=== PATIENT | female | born 1955 | race Caucasian/White ===

== ENCOUNTER → 2016-07-11 | Outpatient (REF) | payer BC | LOC: M LAB REF 16:40 | PROVIDERS: ATTEND Surgery | DX: L72.0 Epidermal cyst (principal) ==

== ENCOUNTER → 2016-12-04 | Outpatient (REF) | payer BC | LOC: M LAB REF 12:52 | PROVIDERS: ATTEND Internal Medicine | DX: Z11.59 Encounter for screening for other viral diseases (principal) ==

== ENCOUNTER → 2017-02-06 | Outpatient (REF) | payer BC ==
[2017-02-06 11:54] LABS: ALBUMIN 3.6 GM/DL (3.2-5.2); ALKALINE PHOSPHATASE 90 U/L (45-117); ALT/SGPT 19 U/L (12-78); AST/SGOT 18 U/L (7-37); BILIRUBIN,DIRECT < 0.1 MG/DL (0.0-0.2); BILIRUBIN,TOTAL 0.4 MG/DL (0.2-1.0); TOTAL PROTEIN 6.6 GM/DL (6.4-8.2)
[2017-02-06 11:57] LABS: HEPATITIS B SURFACE ANTIBODY NEGATIVE (POSITIVE)
[2017-02-08 14:18] LABS: HBsAG CONFIRM SCRN Confirm. indicated (Negative); HBsAG NEUTRALIZATION Positive (.)
== END ==
LOC: M LABDRAW1 11:11
DX: B18.1 Chronic viral hepatitis B without delta-agent (principal); D18.03 Hemangioma of intra-abdominal structures
CPT/HCPCS: 80076

== ENCOUNTER → 2017-05-11 | Outpatient (CLI) | payer OTHER, BC ==
[2017-05-11 12:18] LABS: INFLUENZA A AMPLIFICATION NEGATIVE (NEGATIVE); INFLUENZA B AMPLIFICATION NEGATIVE (NEGATIVE)
== END ==
LOC: M LAB 10:45
DX: Z11.59 Encounter for screening for other viral diseases (principal)
CPT/HCPCS: 87502

== ENCOUNTER → 2018-02-26 | Outpatient (REF) | payer OTHER | LOC: M SFHCLERA 10:59 | PROVIDERS: ATTEND Nurse Practitioner Family | DX: R53.81 Other malaise (principal) ==

== ENCOUNTER → 2018-05-26 | Outpatient (REF) | payer OTHER | LOC: M LAB REF 16:17 | PROVIDERS: ATTEND Internal Medicine | DX: R31.9 Hematuria, unspecified (principal) ==

== ENCOUNTER → 2018-06-02 | Outpatient (REF) | payer OTHER | LOC: M LAB REF 12:24 | PROVIDERS: ATTEND Internal Medicine | DX: R31.9 Hematuria, unspecified (principal) ==

== ENCOUNTER → 2018-10-04 | Outpatient (REF) | payer OTHER | LOC: M SFHCLERA 09:22 | PROVIDERS: ATTEND Physician Assistant | DX: R30.0 Dysuria (principal) ==

== ENCOUNTER → 2019-06-24 | Outpatient (REF) | payer OTHER ==
[2019-06-24 18:06] LABS: APPEARANCE, URINE CLEAR (CLEAR); BACTERIA, URINE AUTO NEGATIVE (NEGATIVE); BILIRUBIN, URINE AUTO NEGATIVE (NEGATIVE); BLOOD, URINE BLOOD 2+ (NEGATIVE); COLOR, URINE YELLOW (YELLOW); GLUCOSE, URINE (UA) AUTO NEGATIVE (NEGATIVE); KETONE, URINE AUTO NEGATIVE (NEGATIVE); LEUKOCYTE ESTERASE, URINE AUTO NEGATIVE (NEGATIVE); NITRITE, URINE AUTO NEGATIVE (NEGATIVE); PROTEIN, URINE AUTO NEGATIVE (NEGATIVE); RBC, URINE AUTO 6 /HPF (0-3); SPECIFIC GRAVITY URINE AUTO 1.012 (1.002-1.035); SQUAMOUS EPITHELIAL CELL UR AU 0 /HPF (0-6); UROBILINOGEN, URINE AUTO 0.2 mg/dL (0.0-2.0); WBC, URINE AUTO 0 /HPF (0-3)
== END ==
LOC: M LAB REF 16:21
PROVIDERS: ATTEND Obstetrics & Gynecology
DX: N39.0 Urinary tract infection, site not specified (principal)

== ENCOUNTER → 2020-06-23 | Outpatient (CLI) | payer OTHER ==
--- NOTE | 2020-06-23 13:56 | REPMRS ---
Patient History The patient states she had a clinical breast exam on 04-04-2020. Patient is postmenopausal. No known family history of cancer. No Hormone Replacement Therapy Patient states no breast complaints today. Patient has signed MRS History Sheet. Digital Woman Screen Mammo: June 23, 2020 - Exam #: [id number] Bilateral CC and MLO view(s) were taken. Technologist: Debbie Burnett, Repairer General Prior study comparison: September 10, 2013, right breast digital mammo diagnostic unilateral, performed at [facility]. September 08, 2013, bilateral bilat screen digital mammo, performed at [facility] ([facility]). FINDINGS: There are scattered fibroglandular densities. Screening. Digital screening (2D) mammography was performed bilaterally in the CC and MLO projections. Additionally, breast tomosynthesis (3D mammography) was performed bilaterally in the CC and MLO projections. Todays exam was compared to the prior exams. By history, the patient has no complaints of a palpable breast abnormality or other significant breast complaints. The breasts are unchanged in size and shape. There are no aleksandar-soft tissue densities or spiculated masses. There is no internal architectural distortion.Once again, stable benign appearing calcifications are seen. There are no suspicious aleksandar-calcific clusters. Skin thickening or nipple retraction is not present. IMPRESSION: BI-RADS Category 2- Benign Findings. There is no evidence of malignant alteration of the breasts. Followup examination recommended in one year. The Volpara volumetric breast density category is B, there are scattered areas of fibroglandular density. This mammogram was read with the assistance of [employer] HusseinShopetti,an FDA approved computer aided detection system for mammography. The lifetime Tyrer-Cuzick score is 9 % Negative x-ray reports should not delay surgical consultation if a dominant or clinically suspicious mass is present. Not all breast cancers can be identified by mammography. Therefore, we recommend that you continue to perform regular breast self-examination and physical examination and then promptly contact your physician of any concerns or changes. Adenosis and dense breasts may obscure an underlying neoplasm. Assessment: BI-RADS/ACR category 2 mammogram. Benign Findings. Recommendation Routine screening mammogram of both breasts in 1 year. Electronically Signed By: Bony Wolf DO 06/23/20 1332
== END ==
LOC: M WHC 11:20
PROVIDERS: ATTEND Obstetrics & Gynecology
DX: Z12.31 Encounter for screening mammogram for malignant neoplasm of breast (principal)

== ENCOUNTER → 2020-06-30 | Outpatient (REF) | payer OTHER | LOC: M LAB REF 12:07 | PROVIDERS: ATTEND Internal Medicine | DX: B18.1 Chronic viral hepatitis B without delta-agent (principal); F43.22 Adjustment disorder with anxiety ==

== ENCOUNTER → 2021-06-21 | Outpatient (CLI) | payer OTHER | LOC: M SLEEP HO 11:50 | PROVIDERS: ATTEND Nurse Practitioner Adult Health | DX: G47.30 Sleep apnea, unspecified (principal) ==

== ENCOUNTER → 2021-08-28 | Outpatient (CLI) | payer OTHER | LOC: M WHC 13:50 | PROVIDERS: ATTEND Obstetrics & Gynecology | DX: Z12.31 Encounter for screening mammogram for malignant neoplasm of breast (principal) ==

== ENCOUNTER → 2021-09-08 | Outpatient (CLI) | payer OTHER | LOC: M RAD 08:32 | PROVIDERS: ATTEND Internal Medicine | DX: R77.2 Abnormality of alphafetoprotein (principal); Z86.19 Personal history of other infectious and parasitic diseases; K80.20 Calculus of gallbladder without cholecystitis without obstruction ==

== ENCOUNTER → 2022-02-26 | Outpatient (REF) | payer MEDICARE, OTHER | LOC: M LAB REF 16:27 | PROVIDERS: ATTEND Internal Medicine | DX: B18.1 Chronic viral hepatitis B without delta-agent (principal) ==

== ENCOUNTER → 2022-03-29 | Outpatient (CLI) | payer MEDICARE, OTHER ==
[~2022-03-29] MED LIST: GASTROGRAFIN SOLUTION 30ML As Ordered ONE; ISOVUE-370 76% 100ML VIAL As Ordered ONE
== END ==
LOC: M RAD 11:45
PROVIDERS: ATTEND Internal Medicine
DX: B18.1 Chronic viral hepatitis B without delta-agent (principal)
CPT/HCPCS: 74177; Q9963; Q9967

== ENCOUNTER → 2022-04-27 | Outpatient (CLI) | payer MEDICARE ==
[~2022-04-27] MED LIST changes: -GASTROGRAFIN SOLUTION 30ML As Ordered ONE; -ISOVUE-370 76% 100ML VIAL As Ordered ONE; +PROHANCE 279.3MG/ML 15ML VIAL ONE; +PROHANCE 279.3MG/ML 5ML VIAL ONE
== END ==
LOC: M PLAIMG 09:04
PROVIDERS: ATTEND Internal Medicine
DX: D37.8 Neoplasm of uncertain behavior of other specified digestive organs (principal); R93.2 Abnormal findings on diagnostic imaging of liver and biliary tract; K80.00 Calculus of gallbladder with acute cholecystitis without obstruction
CPT/HCPCS: 74183; A9576

== ENCOUNTER → 2023-04-10 | Outpatient (CLI) | payer MEDICARE ==
[~2023-04-10] MED LIST changes: +BENZ200C70 PO; +NAPR-837 PO; +OMEP-173 PO; -PROHANCE 279.3MG/ML 15ML VIAL ONE; -PROHANCE 279.3MG/ML 5ML VIAL ONE; +SERT-141 PO
== END ==
LOC: M RAD 09:49
PROVIDERS: ATTEND Physician Assistant Medical
DX: B18.1 Chronic viral hepatitis B without delta-agent (principal); D18.03 Hemangioma of intra-abdominal structures

== ENCOUNTER → 2023-04-23 | Outpatient (CLI) | payer MEDICARE | LOC: M WHC 09:33 | PROVIDERS: ATTEND Internal Medicine | DX: Z12.31 Encounter for screening mammogram for malignant neoplasm of breast (principal) ==

== ENCOUNTER 2023-09-11 08:10 | Day surgery (SDC) | payer MEDICARE ==
[~2023-09-11] VITALS: Ht 167.6 cm; Wt 82.1 kg
[~2023-09-11 08:10] MED LIST changes: +PHENYLEPHRINE 10% OPHTH SOL 5ML OS PRN; +SERT50TA29 PO
[2023-09-11] MEDS: ATROPINE SULFATE 1% OPHTH SOLN 2ML BTL OS SCH (09:45)
[2023-09-11] MEDS: TROPICAMIDE 1% OPHTH SOLN 15ML OS SCH (09:46)
[2023-09-11] MEDS: PHENYLEPHRINE 2.5% OPHTH SOL 2ML OS SCH (09:46)
[2023-09-11] MEDS: OFLOXACIN 0.3 % (OCUFLOX) OPTH SOL 5ML OS ONE (09:46)
[2023-09-11] MEDS: LIDOCAINE 1% SDV 5ML VIAL As Ordered ONE (10:31)
[2023-09-11] MEDS ORDERED: LIDOCAINE 3.5 % 1ML OPHTH TOPICAL GEL OU ONE (10:35)
[2023-09-11] MEDS: CEFUROXIME 1MG/0.1ML INTRACAMERAL INJ As Ordered ONE (10:49)
[2023-09-11] MEDS ORDERED: fentaNYL 100 MCG/2 ML INJECTION As Ordered ONE (10:49)
[2023-09-11] MEDS: BSS IRRIG/VANCO(10MG)/TOBRA(5MG)/EPINEPH(1:1000-0.5CC)500ML BAG-ORONLY As Ordered ONE (10:49)
[2023-09-11] MEDS ORDERED: MIDAZOLAM INJ 2MG/2ML VIAL As Ordered ONE (10:49)
[2023-09-11 11:01] VITALS: BP 133/76; TEMP 97.2; O2SAT 96
== END 2023-09-11 11:16 | disposition home or self-care (01) ==
LOC: M SDC 08:10
PROVIDERS: ATTEND Ophthalmology
DX: H25.12 Age-related nuclear cataract, left eye (principal); G47.30 Sleep apnea, unspecified; F41.9 Anxiety disorder, unspecified; Z79.899 Other long term (current) drug therapy; Z88.2 Allergy status to sulfonamides; Z88.4 Allergy status to anesthetic agent; Z86.19 Personal history of other infectious and parasitic diseases
CPT/HCPCS: 66984; 92015; J0697; J2250; J3010; V2632

== ENCOUNTER → 2024-05-12 | Outpatient (CLI) | payer MEDICARE ==
[~2024-05-12] MED LIST changes: -PHENYLEPHRINE 10% OPHTH SOL 5ML OS PRN
== END ==
LOC: M WHC 10:30
PROVIDERS: ATTEND Internal Medicine
DX: Z12.31 Encounter for screening mammogram for malignant neoplasm of breast (principal)

== ENCOUNTER → 2024-06-22 | Outpatient (CLI) | payer MEDICARE | LOC: M SLEEP 20:00 | PROVIDERS: ATTEND Internal Medicine Pulmonary Disease | DX: G47.33 Obstructive sleep apnea (adult) (pediatric) (principal) ==

== ENCOUNTER → 2024-12-24 | Outpatient (REF) | payer MEDICARE | LOC: M LAB REF 14:27 | PROVIDERS: ATTEND Internal Medicine | DX: B18.1 Chronic viral hepatitis B without delta-agent (principal) ==